=== PATIENT | female | born 1965 | race Caucasian/White ===

== ENCOUNTER 2017-03-02 12:20 | Emergency (ER) | payer OTHER ==
[~2017-03-02] VITALS: Ht 172.7 cm; Wt 128.8 kg
[2017-03-02 12:44] VITALS: BP 185/91; PULSE 97; RESP 18; TEMP 97.3; O2SAT 97
--- NOTE | 2017-03-02 12:57 | PD ---
HPI Chief Complaint: Injury Time Seen by Provider: 12:40 Travel History International Travel<30 days: No Contact w/Intl Traveler<30days: No Traveled to known affect area: No History of Present Illness HPI 51-year-old female presents to the emergency room for evaluation of left ankle pain and swelling after rolling her ankle last night. Patient was walking around her house when she misstepped and inverted her left ankle. Since then she has had left lateral ankle pain and swelling that radiates into the back of her heel. Patient can ambulate but reports moderate pain. She has pain with any range of motion of the left ankle. She took Tylenol last night without significant relief in symptoms. She has not iced it or elevated it. When she went to work, her coworkers recommended she have it evaluated because of the pain. Denies paresthesias or knee pain. No chronic medical conditions or daily medications. PFSH Past Medical History ?: Not LMP: 10 MTHS Past Surgical History Section: Yes (X2) Social History Alcohol Use: Yes (SOCIALLY) Tobacco Use: No Substance Use: No Allergies-Medications (Allergen,Severity, Reaction): Coded Allergies: No Known Allergies (Unverified , 03/02/17) Reported Meds & Prescriptions Reported Meds & Active Scripts Active No Active Prescriptions or Reported Medications Review of Systems Except as stated in HPI: all other systems reviewed are Neg Physical Exam Narrative GENERAL: Well-nourished, well-developed female in no acute distress. Afebrile. SKIN: Focused skin assessment warm/dry. No erythema or ecchymosis. HEAD: Normocephalic. EYES: No scleral icterus. No injection or drainage. NECK: Supple, trachea midline. No JVD or lymphadenopathy. CARDIOVASCULAR: Regular rate and rhythm without murmurs, gallops, or rubs. RESPIRATORY: Breath sounds equal bilaterally. No accessory muscle use. MUSCULOSKELETAL: No cyanosis. Mild to moderate edema of the left lateral malleolus and moderate tenderness to palpation. Full range of motion but with pain of the left ankle. Negative squeeze test. No knee pain. 2+ dorsalis pedis pulse. Data Data Last Documented VS Vital Signs Date Time Temp Pulse Resp B/P Pulse Ox O2 Delivery O2 Flow Rate FiO2 03/02/17 13:27 83 18 170/104 97 Room Air 03/02/17 12:44 97.3 Orders Ankle, Complete ([id number]) (03/02/17 ) Splint Or Brace Apply/Monitor (03/02/17 14:12) Crutches (03/02/17 14:12) MDM Medical Decision Making Medical Screen Exam Complete: Yes Emergency Medical Condition: Yes Medical Record Reviewed: Yes Differential Diagnosis Sprain, strain, fracture Narrative Course 51-year-old female presents to the emergency room for evaluation of left ankle pain and swelling after rolling her ankle last night. Patient did not actually fall. She has been ambulatory since onset. Physical exam reveals mild to moderate tenderness to palpation and edema of the left lateral malleolus. Left lower extremity is neurovascularly intact with 2+ dorsalis pedis pulse. Limited range of motion secondary to pain. Negative squeeze test. Of note, patient is mildly hypertensive which appears normal for her. She is not on any medications. X-ray shows mild distal tibiofibular joint separation and widening of the lateral ankle mortise but is negative for acute bony abnormality. This is high ankle sprain. Patient placed in Ramirez splint and discharged with crutches and orthopedic instructions. Told to follow up with the primary care physician after keeping a two-week log of blood pressures or return for worsening symptoms. She understands and agrees to plan. Diagnosis Primary Impression: High ankle sprain of left lower extremity Qualified Code: S93.432A - High ankle sprain of left lower extremity, initial encounter Referrals: Orthopaedic Surgeon Primary Care Physician Patient Instructions: Ankle Sprain (ED), General Instructions Departure Forms: Tests/Procedures, Work Release Special Instructions: Light duty: No weightbearing of left lower extremity until cleared by orthopedic surgeon Additional Instructions: Rest and drink plenty of fluids. Take ibuprofen with food as directed, as needed for pain. Use splint. Elevate and apply ice to the affected area for 20 minutes at a time , as needed for pain and swelling. No weightbearing until follow-up. Follow-up with an orthopedic surgeon within 1 week for possible surgery Keep a two-week log of daily blood pressures to follow-up with a primary care physician. Return to the emergency room for worsening symptoms. Scripts No Active Prescriptions or Reported Meds Disposition: 01 DISCHARGE HOME Condition: Stable Dora Ramirez Mar 02, 2017 12:57
[2017-03-02 13:27] VITALS: BP 170/104; PULSE 83; RESP 18; O2SAT 97
--- NOTE | 2017-03-02 14:02 | RADRPT ---
EXAM DATE/TIME: 03/02/2017 13:34 [facility] COMPARISON: No previous studies available for comparison. INDICATIONS : Patient twisted left ankle last night. MEDICAL HISTORY : None. SURGICAL HISTORY : None. ENCOUNTER: Initial ACUITY: 1 day PAIN SCORE: 9/10 LOCATION: Left lateral malleolus FINDINGS: There is mild widening of the distal tibiofibular joint and of the lateral ankle mortise. The hindfoo t is grossly intact with incidental plantar heel spur noted. There is no evidence of displaced fractu re. CONCLUSION: Mild distal tibiofibular joint separation Jim Jack MD on March 02, 2017 at 13:57 Board Certified Radiologist. This report was verified electronically.
== END 2017-03-02 15:18 | disposition home or self-care (01) ==
LOC: PHEFT 12:20
DX: S93.432A Sprain of tibiofibular ligament of left ankle, initial encounter (principal); X50.0XXA Overexertion from strenuous movement or load, initial encounter; Y93.01 Activity, walking, marching and hiking; Y92.009 Unspecified place in unspecified non-institutional (private) residence as the place of occurrence of the external cause
CPT/HCPCS: 29515; 73610; 99283; E0113

== ENCOUNTER 2017-07-17 10:19 | Emergency (ER) | payer OTHER ==
[~2017-07-17] VITALS: Ht 172.7 cm; Wt 131.0 kg
[2017-07-17 10:30] VITALS: BP 190/101; PULSE 126; RESP 18; TEMP 98.2; O2SAT 98
--- NOTE | 2017-07-17 10:58 | PD ---
HPI Chief Complaint: Lump, Cyst, Hernia Time Seen by Provider: 10:40 Travel History International Travel<30 days: No Contact w/Intl Traveler<30days: No Traveled to known affect area: No History of Present Illness HPI patient's 51-year-old female who awoke with left shoulder pain starting this morning. Patient states is never happened to her this severe before. She states it feels like a spasm in her left shoulder but the thing that became very concerning to her she noticed a new lump and she identifies it at the sternal clavicular joint. Patient states she is concerned that there is something wrong as this is a new lump for her. She denies any fevers denies any injuries denies any shortness of breath abdominal pain. She states it hurts her spasmodically and when she moves her left shoulder. Denies any other joint pains. States the symptoms are severe, spasmodic, intermittent, context as above, associated signs symptoms as above, and started this morning. PFSH Past Medical History Diminished Hearing: No Immunizations Current: Yes ?: Not Menopausal: Yes Past Surgical History Section: Yes (X2) Social History Alcohol Use: Yes (SOCIALLY) Tobacco Use: No Substance Use: No Allergies-Medications (Allergen,Severity, Reaction): Coded Allergies: No Known Allergies (Unverified Adverse Reaction, Unknown, 07/17/17) Reported Meds & Prescriptions Reported Meds & Active Scripts Active Flexeril (Cyclobenzaprine HCl) 10 Mg Tab 10 Mg PO TID Review of Systems Except as stated in HPI: all other systems reviewed are Neg Physical Exam Narrative GENERAL: Well-nourished, well-developed patient appears quite uncomfortable and anxious. SKIN: Focused skin assessment warm/dry. HEAD: Normocephalic. EYES: No scleral icterus. No injection or drainage. NECK: Supple, trachea midline. No JVD or lymphadenopathy. CARDIOVASCULAR: Regular rate and rhythm without murmurs, gallops, or rubs. RESPIRATORY: Breath sounds equal bilaterally. No accessory muscle use. GASTROINTESTINAL: Abdomen soft, non-tender, nondistended. MUSCULOSKELETAL: No cyanosis, or edema. The patient sternoclavicular joint on the left is where she identifies a lump appears bilaterally equal at the right side, I appreciate no lymphadenopathy swelling mass. Patient has tenderness to palpation along her entire clavicle, proximal humerus and shoulder blade on the left. She is also having a palpable spasm of what appears to be the infraspinatus muscle but further examination is limited secondary to patient cooperation/pain. Compartments are soft, pulses motor and sensory intact distally in all 4 extremities. There is no gross deformity. BACK: Nontender without obvious deformity. No CVA tenderness. Data Data Last Documented VS Orders Orders Oxycodone-Acetamin 5-325 Mg (Percocet (07/17/17 11:00) Diazepam (Valium) (07/17/17 11:00) Chest, Pa & Lat (07/17/17 ) Shoulder, Limited(2vws) (07/17/17 ) Ed Discharge Order (07/17/17 12:05) MDM Medical Decision Making Medical Screen Exam Complete: Yes Emergency Medical Condition: Yes Differential Diagnosis shoulder strain, shoulder sprain, fracture unlikely. Narrative Course patient x-rays obtained of the chest and left shoulder, negative. She was given medication is feeling much better. She was reassured that I do not appreciate any mass but if it continues to concern her she needs to follow up with her primary care physician for further diagnostic testing. She is stable for discharge at this time. Diagnosis Primary Impression: Muscle spasm of left shoulder Med/Other Pt SpecificInfo: Prescription(s) given Scripts Cyclobenzaprine (Flexeril) 10 Mg Tab 10 MG PO TID for Muscle Spasm, #20 TAB 0 Refills Prov: Jerad Contreras MD 07/17/17 Disposition: 01 DISCHARGE HOME Condition: Stable Jerad Contreras MD Jul 17, 2017 10:58
[2017-07-17] MEDS ORDERED: oxyCODONE/ACETAMINOPHEN 5 MG/325 MG TAB PO ONE (11:00)
[2017-07-17] MEDS ORDERED: DIAZEPAM 5 MG TAB PO ONE (11:00)
--- NOTE | 2017-07-17 11:12 | RADRPT ---
EXAM DATE/TIME: 07/17/2017 11:00 [facility] COMPARISON: CHEST SINGLE AP, July 04, 2014, 8:43. INDICATIONS : Left shoulder and upper chest pain increasing with no history of trauma. MEDICAL HISTORY : None. SURGICAL HISTORY : None. ENCOUNTER: Initial ACUITY: 1 day PAIN SCORE: 10/10 LOCATION: Left upper extremity FINDINGS: PA and lateral views of the chest demonstrate the lungs to be symmetrically aerated without evidence of mass, infiltrate or effusion. The cardiomediastinal contours are unremarkable. Osseous structure s are intact. CONCLUSION: No acute disease. Jim Jack MD on July 17, 2017 at 11:09 Board Certified Radiologist. This report was verified electronically.
--- NOTE | 2017-07-17 11:16 | RADRPT ---
EXAM DATE/TIME: 07/17/2017 11:03 [facility] COMPARISON: No previous studies available for comparison. INDICATIONS : Left shoulder pain increasing since this am, no history of trauma. MEDICAL HISTORY : None. SURGICAL HISTORY : None. ENCOUNTER: Initial ACUITY: 1 day PAIN SCORE: 10/10 LOCATION: Left upper extremity FINDINGS: Two view examination of the left shoulder demonstrates no evidence of fracture or dislocation. The g lenohumeral and acromioclavicular joints are maintained. Bony mineralization is normal. CONCLUSION: Unremarkable limited examination of the left shoulder. Jim Jack MD on July 17, 2017 at 11:10 Board Certified Radiologist. This report was verified electronically.
[2017-07-17] MEDS ORDERED: CYCL10TA PO (11:57)
== END 2017-07-17 12:08 | disposition home or self-care (01) ==
LOC: PHED 10:19
DX: M62.838 Other muscle spasm (principal); Z79.899 Other long term (current) drug therapy
CPT/HCPCS: 71020; 73030; 99284